=== PATIENT | female | born 1980 | race Caucasian/White ===

== ENCOUNTER 2019-02-01 05:54 | Observation (INO) | payer BC ==
[2019-02-01 10:49] VITALS: BMI 36.0
[2019-02-01] MEDS ORDERED: diphenhydrAMINE HCL 25 MG TABLET PO PRN (12:17)
[2019-02-01] MEDS ORDERED: ONDANSETRON HCL/PF 4 MG/ 2ML VIAL IVP PRN (12:17)
[2019-02-01] MEDS ORDERED: diazePAM 5 MG TABLET PO PRN (12:17)
[2019-02-01] MEDS ORDERED: ACETAMINOPHEN 500 MG TABLET PO PRN (12:17)
[2019-02-01] MEDS ORDERED: MORPHINE SULFATE 4 MG/ML VIAL IV PRN (12:17)
[2019-02-01] MEDS ORDERED: diphenhydrAMINE HCL 50 MG/ML VIAL IVP PRN (12:17)
[2019-02-01] MEDS ORDERED: PROMETHAZINE HCL 25 MG in 0.9 % SODIUM CHLORIDE 50 ML IV PRN (12:17)
[2019-02-01] MEDS: 0.9 % SODIUM CHLORIDE 1,000 ML IV SCH ×2 (12:58→20:04)
[2019-02-01] MEDS ORDERED: KETOROLAC TROMETHAMINE 15 MG/ML VIAL ONE ×2 (14:13→22:06)
[2019-02-01] MEDS: KETOROLAC TROMETHAMINE 15 MG/ML VIAL IV PRN ×2 (14:18→23:20)
[2019-02-01] MEDS: ceFAZolin SODIUM 1 GM in 0.9 % SODIUM CHLORIDE 50 ML IV SCH ×2 (16:56→23:49)
--- NOTE | 2019-02-01 18:28 | History and Physical Report ---
History of Present Illnes - History of Present Illness Reason for Visit: Low back pain, s/p decompression History of Present Illness: This is a 38 year old female who was seen by Dr Motta for low back pain non amenable to conservative treatment. Shwas taken to the OR today for laminectomy, foraminotomy and decompression of right side at L4L5. Her surgery was uncomplicated. 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 Tunnel Syndrome Gastrointestinal: denies: Constipation Heme/Onc: denies: Anemia NOS, B12 deficiency Hepatobiliary: denies: Cirrhosis Psych: denies: Anxiety, Addictions Musculoskeletal: denies: Chronic low back pain Rheumatologic: denies: Fibromyalgia Infectious Disease: denies: Bacterial vaginosis ENT: denies: Sinusitis Renal/: denies: Chronic renal insuff Endocrine: denies: Diabetes, Hyperthyroidism Dermatology: denies: Eczema - Past Surgical History Past Surgical History: Other ([place] teeth exctracted) - Past Social History Smoke: Quit (6 year ago) Alcohol: None Drugs: None Lives: With Family Domestic Violence: Negative - Health Maintenance Health Maintenance: Cholesterol Influenza Vaccine: Current for this Influenza Season Pneumonia Vaccine: Yes Resuscitation Status: Resusciation Status Resuscitation Status Full Code - Unable to Obtain History Unable to Obtain: No Review of Systems - Review of Systems Constitutional: negative: Fever, Chills Eyes: negative: pain ENT: negative: Ear Pain Respiratory: negative: Cough, Dry Cardiovascular: negative: Chest Pain Gastrointestinal: negative: Nausea, Vomiting Genitourinary: negative: Dysuria, Other Musculoskeletal: negative: Shoulder Pain Skin: negative: Rash, Lesions Neurological: negative: Weakness, Numbness - Medications/Allergies Allergies/Adverse Reactions: Allergies Allergy/AdvReac Type Severity Reaction Status Date / Time levofloxacin [From Levaquin] Allergy Verified 02/01/19 12:16 Current Inpatient Medications: Current Inpatient Medications Acetaminophen (Tylenol Extra Strength) 500 mg PO Q4H PRN PRN Reason: MILD PAIN OR TEMP > 101 Stop: 02/02/19 23:59 Diazepam (Valium) 5 mg PO Q8H PRN PRN Reason: ANXIETY OR MUSCLE SPASMS Stop: 02/02/19 23:59 Diphenhydramine HCl (Benadryl) 25 mg PO Q4H PRN PRN Reason: ITCHING OR SLEEPING Stop: 02/02/19 23:59 Diphenhydramine HCl (Benadryl) 25 mg IVP Q4H PRN PRN Reason: ITCHING OR SLEEPING Stop: 02/02/19 23:59 Heparin Sodium (Porcine) (Heparin) 5,000 unit SQ Q12 [facility] Stop: 03/03/19 20:59 Sodium Chloride (Normal Saline) 1,000 mls @ 150 mls/hr IV Q6H [facility] Stop: 02/02/19 12:30 Last Admin: 02/01/19 12:58 Dose: 150 mls/hr Cefazolin Sodium 1 gm/ Sodium (Chloride) 50 mls @ 100 mls/hr IV Q8H [facility] Stop: 02/02/19 00:29 Last Admin: 02/01/19 16:56 Dose: 100 mls/hr Promethazine HCl 25 mg/ Sodium (Chloride) 51 mls @ 204 mls/hr IV Q6H PRN PRN Reason: Nausea / Vomiting Stop: 02/04/19 23:59 Ketorolac Tromethamine (Toradol) 15 mg IV Q6H PRN PRN Reason: Mild Pain (Score 1-4) Stop: 02/03/19 12:00 Last Admin: 02/01/19 14:18 Dose: 15 mg Morphine Sulfate () 4 mg IV Q2H PRN PRN Reason: Severe Pain (Score 8-10) Stop: 02/02/19 23:59 Ondansetron HCl (Zofran) 4 mg IVP Q6H PRN PRN Reason: Nausea / Vomiting Stop: 02/02/19 23:59 Oxycodone/Acetaminophen (Percocet 10-325) 1 each PO Q4H PRN PRN Reason: Mild Pain (Score 1-4) Stop: 02/02/19 23:59 Last Admin: 02/01/19 12:57 Dose: 1 each Oxycodone/Acetaminophen (Percocet 10-325) 2 each PO Q4H PRN PRN Reason: Moderate Pain (Score 5-7) Stop: 02/02/19 23:59 Exam - Exam Vital Signs: Vital Signs (72 hours) 02/01/19 02/01/19 02/01/19 02:00 09:59 10:34 Temperature 97.8 F 97.6 F 97.6 F Pulse Rate [ 80 88 88 Pulse ox] Respiratory 18 18 18 Rate Blood Pressure 112/68 [Left Arm] Blood Pressure 110/59 109/62 [Right Arm] O2 Sat by Pulse 97 98 98 Oximetry 02/01/19 02/01/19 02/01/19 11:30 12:30 13:08 Temperature 97.6 F 97.7 F Pulse Rate [ 100 H 100 H 100 H Pulse ox] Respiratory 18 18 18 Rate Blood Pressure 102/60 110/64 [Left Arm] Blood Pressure [Right Arm] O2 Sat by Pulse 98 98 Oximetry 02/01/19 17:46 Temperature 98.7 F Pulse Rate [ 76 Pulse ox] Respiratory 16 Rate Blood Pressure 119/70 [Left Arm] Blood Pressure [Right Arm] O2 Sat by Pulse 96 Oximetry General: Alert, Oriented to Person, Oriented to Time, Cooperative, Mild distress HEENT: Atraumatic, PERRLA, EOMI Neck: No: Stridor, Rigidity Lungs: Clear to auscultation, Normal air movement, Speaks full Sentences Cardiovascular: Regular rate, Normal S1, Normal S2 Murmur: No: Systolic Murmur Abdomen: Normal bowel sounds, Soft, No tenderness, No hepatospenomegaly Genitourinary: No: Other Male Genitourinary: No: Other Female Genitourinary: No: Other Integumentary: Normal, [place], Warm, Dry Extremities: No clubbing, No cyanosis, No edema Neurological: Normal speech Psych/Mental Status: Mental status NL Assessment/Plan - Assessment/Plan (1) Herniated lumbar intervertebral disc Status: Acute Current Visit: Yes Assessment: S/P decompression (2) Degenerative disc disease, lumbar Status: Acute Current Visit: Yes Assessment: s/p discectomy VTE Assessment - RISK FACTOR SCORE VTE RISK FACTOR SCORES: MINOR SURGERY/ ANESTHESIA TIME < 1 HOUR - RISK VTE LOW RISK: SCORE OF 1 OR LESS (RISK PROXIMAL DVT 0.4%) NO PROPHYLAXIS NEEDED
[2019-02-01] MEDS: HEPARIN SODIUM 5000 UNIT/1 ML SQ SCH (21:09)
[2019-02-02] MEDS: 0.9 % SODIUM CHLORIDE 1,000 ML IV SCH ×3 (02:00→10:05)
[2019-02-02 07:18] LABS: BASOPHILS % 0.7 % (0.0-1.5); NEUTROPHILS # 13.5 # k/uL (1.4-7.7)
[2019-02-02] MEDS: HEPARIN SODIUM 5000 UNIT/1 ML SQ SCH (08:51)
[2019-02-02 09:05] VITALS: BP 116/71
--- NOTE | 2019-02-02 10:13 | Discharge Summary ---
Discharge Summary - Discharge Sumary Admission Date: 02/01/19 Discharge Date: 02/02/19 Discharge To: Home Condition at Discharge: Stable Consultations this Visit: None Procedures this Visit: Other (Lumbar laminectomy, LFD) Allergies/Adverse Reactions: Allergies Allergy/AdvReac Type Severity Reaction Status Date / Time levofloxacin [From Levaquin] Allergy Verified 02/01/19 12:16 Patient Problems: Current Active Problems Problem Status Onset Degenerative disc disease, lumbar Acute Herniated lumbar intervertebral disc Acute
== END 2019-02-02 10:50 | disposition home or self-care (01) ==
LOC: OPSURG 05:54 → SOUTH 09:53
PROVIDERS: ADMIT Family Medicine; ATTEND Family Medicine
DX: M47.816 Spondylosis without myelopathy or radiculopathy, lumbar region (principal); M51.36 Other intervertebral disc degeneration, lumbar region
CPT/HCPCS: 83880; 85025; 97535; 99234; J0690; J1644; J2270; G0378; J7030